=== PATIENT | female | born 1945 | race Two or more races ===

== ENCOUNTER 2018-04-14 08:15 | Inpatient (IN) | payer OTHER ==
[~2018-04-14] VITALS: Ht 160 cm; Wt 72.1 kg
[2018-04-27] MEDS ORDERED: SYNTHROID137 MCG PO (11:57)
[2018-04-27] MEDS ORDERED: ZOCOR20 MG PO (11:58)
[2018-04-27] MEDS ORDERED: SINGULAIR 10MG10 MG PO (11:58)
[2018-04-27] MEDS ORDERED: ZESTRIL2.5 MG PO (11:58)
[2018-05-03] MEDS ORDERED: FLOVENT DISKU100 MCG IH (12:26)
[2018-05-04] MEDS ORDERED: ELIQUIS2.5 MG PO (16:33)
[2018-05-04] MEDS ORDERED: PERCOCET 5-3251 EACH PO (16:33)
[2018-05-04] MEDS ORDERED: CIPRO500 MG PO (16:33)
== END 2018-05-04 20:53 | DRG 470 ==
LOC: O/R 05-02 06:18 → SURG 05-02 06:18 → SURH 05-02 09:30 → SURG 05-02 14:42 → O/R 05-02 16:34 → SURG 05-02 16:35
PROVIDERS: ADMIT Orthopaedic Surgery
PROC: 0SRC0J9 Replacement of Right Knee Joint with Synthetic Substitute, Cemented, Open Approach (ICD-10-PCS; principal; 2018-05-02 12:30)
DX: M17.11 Unilateral primary osteoarthritis, right knee (principal); D62 Acute posthemorrhagic anemia; M81.0 Age-related osteoporosis without current pathological fracture; I10 Essential (primary) hypertension; E07.89 Other specified disorders of thyroid; E03.8 Other specified hypothyroidism